=== PATIENT | female | born 1975 | race Caucasian/White ===

== ENCOUNTER 2020-04-20 16:25 | Outpatient (CLI) | payer BC, SELFPAY ==
--- NOTE | ~2020-04-20 | US_ITS ---
EXAMINATION: US pelvic complete w TV DATE: 04/20/2020 17:12 INDICATION: Vaginal spotting between periods Comparison:No prior studies for comparison. TECHNIQUE: Multiple transabdominal and endovaginal sonographic images of the pelvis performed. FINDINGS: The uterus measures 6.9 x 3.8 x 4.7 cm. There is a small hypoechoic mass of the myometrium measuring 8 mm, likely fibroid. The endometrial complex measures 8 mm. The right ovary measures 2.3 x 1 x 1.5 cm and the left ovary measures 1.9 x 1.2 x 1.2 cm. There is a 1.9 cm left ovarian cyst. There is no free fluid in the pelvis. There are no abnormal masses seen on either side. IMPRESSION: 1. Thickened endomtrial complex. The differential diagnosis includes endometrial hyperplasia, polyp a nd carcinoma. Biopsy is recommended. 2: Small 8 mm uterine fibroid. 3: 1.9 cm left ovarian cyst, likely benign. Reviewed, dictated and finalized at location A. IMPRESSION: 1. Thickened endomtrial complex. The differential diagnosis includes endometria l hyperplasia, polyp and carcinoma. Biopsy is recommended. 2: Small 8 mm uterine fibroid. 3: 1.9 cm left ovarian cyst, likely benign.
== END 2020-04-20 16:26 | disposition home or self-care (01) ==
PROVIDERS: PCP Family Medicine; Visit Provider Obstetrics & Gynecology
DX: N95.0 Postmenopausal bleeding (principal); R93.89 Abnormal findings on diagnostic imaging of other specified body structures; D25.9 Leiomyoma of uterus, unspecified; N83.202 Unspecified ovarian cyst, left side
CPT/HCPCS: 76830; 76856

== ENCOUNTER 2021-01-19 12:56 | Outpatient (CLI) | payer BC, SELFPAY ==
--- NOTE | ~2021-01-19 | US_ITS ---
EXAMINATION: US pelvic complete w TV DATE: 01/19/2021 13:48 INDICATION: Irregular bleeding between periods. Comparison:Ultrasound dated 04/20/2020 TECHNIQUE: Multiple transabdominal and endovaginal sonographic images of the pelvis performed. FINDINGS: The uterus measures 10.2 x 3.6 x 5.5 cm. Uterus is retroverted. There is a fibroid mid post erior myometrium measuring 1.9 x 1.7 x 1.4 cm. The endometrial complex measures 5.6 mm. The right ovary measures 2.9 x 1.1 x 0.9 cm and the left ovary measures 1.9 x 1.8 x 1.4 cm. There ar e small follicles in each ovary. Normal doppler signal in both ovaries. There are mildly prominent le ft adnexal veins which can be associated with pelvic congestion syndrome. There is no free fluid in the pelvis. There are no abnormal masses seen on either side. IMPRESSION: 1. Uterine fibroid measuring 1.9 x 1.7 x 1.4 cm 2: Mildly prominent left periuterine veins which can be associated with pelvic congestion syndrome. Reviewed, dictated and finalized at location A. SERVICE SUPERVISOR
== END 2021-01-19 12:57 | disposition home or self-care (01) ==
PROVIDERS: PCP Family Medicine; Visit Provider Obstetrics & Gynecology
DX: N93.9 Abnormal uterine and vaginal bleeding, unspecified (principal)
CPT/HCPCS: 76830; 76856

== ENCOUNTER 2021-12-24 08:19 | Outpatient (CLI) | payer BC, SELFPAY ==
--- NOTE | ~2021-12-24 | MM_ITS ---
EXAMINATION: MM screening emely BI w abena HISTORY: Screening mammogram TECHNIQUE: Craniocaudal and mediolateral oblique 3-D tomosynthesis images were obtained and synthetic 2-D images were generated. CAD analysis was submitted and interpreted. COMPARISON: 12/06/2019 BREAST PARENCHYMAL COMPOSITION: The breasts are heterogeneously dense, which may obscure small masses . FINDINGS: There is no evidence of suspicious mass, calcification, or architectural distortion to sugg est malignancy in either breast. There has been no suspicious interval change. IMPRESSION: 1. No mammographic evidence of malignancy. 2. Recommend routine screening mammography in one year. BI-RADS Category 1: Negative Reviewed, dictated and finalized at location A. STITCHER
== END 2021-12-24 08:20 | disposition home or self-care (01) ==
LOC: ANHIMG 08:24
PROVIDERS: PCP Family Medicine; Visit Provider Obstetrics & Gynecology
DX: Z12.31 Encounter for screening mammogram for malignant neoplasm of breast (principal)
CPT/HCPCS: 77063; 77067

== ENCOUNTER 2023-02-11 11:19 | Outpatient (CLI) | payer BC, SELFPAY ==
--- NOTE | ~2023-02-11 | MM_ITS ---
EXAMINATION: MM screening emely BI w abena HISTORY: Screening mammogram TECHNIQUE: Craniocaudal and mediolateral oblique 3-D tomosynthesis images were obtained and synthetic 2-D images were generated. CAD analysis was submitted and interpreted. COMPARISON: December 24, 2021, December 06, 2019 bilateral screening mammogram examinations BREAST PARENCHYMAL COMPOSITION: The breasts are heterogeneously dense, which may obscure small masses . FINDINGS: Left breast: New microcalcifications are suggested in the posterior outer left breast on CC projectio n, not confirmed on MLO view. Diagnostic left mammogram with magnification views is recommended. Right breast: There is no evidence of suspicious mass, calcification, or architectural distortion to suggest malignancy in the right breast. There has been no suspicious interval change. IMPRESSION: 1. Left breast microcalcifications suggested in posterior outer left breast on CC projection, not con firmed on MLO view 2. Diagnostic left mammogram with magnification views is recommended BI-RADS Category 0: Incomplete: Needs additional imaging evaluation. Reviewed, dictated and finalized at location A. IMPRESSION: 1. Left breast microcalcifications suggested in posterior outer left breast on CC projection, not confirmed on MLO view 2. Diagnostic left mammogram with magnification views is recommended BI-RADS Category 0: Incomplete: Needs additional imaging evaluation.
== END 2023-02-11 11:20 | disposition home or self-care (01) ==
LOC: ANHIMG 11:26
PROVIDERS: PCP Family Medicine; Visit Provider Obstetrics & Gynecology
DX: Z12.31 Encounter for screening mammogram for malignant neoplasm of breast (principal); R92.8 Other abnormal and inconclusive findings on diagnostic imaging of breast
CPT/HCPCS: 77063; 77067

== ENCOUNTER 2023-03-10 12:31 | Outpatient (CLI) | payer BC, SELFPAY ==
--- NOTE | ~2023-03-10 | MM_ITS ---
EXAMINATION: MM diagnostic emely LT w abena HISTORY: Left breast microcalcification suggested in posterior outer left breast on screening CC view of 02/11/2023, not confirmed on MLO view TECHNIQUE: Additional 3-D ML tomosynthesis images of the left breast were performed and synthetic 2-D images were generated. Magnification ML and CC views. CAD analysis was submitted and interpreted. COMPARISON: February 11, 2023 bilateral screening mammogram FINDINGS: No microcalcifications are evident on these magnification ML and CC views. The microcalcifi cations suggested on the screening CC view of 02/11/2023 were artifacts. IMPRESSION: 1. No mammographic evidence of malignancy 2. Routine annual mammographic screening is recommended. BI-RADS Category 1: Negative Reviewed, dictated and finalized at location A.
== END 2023-03-10 12:32 | disposition home or self-care (01) ==
LOC: ANHIMG 12:33
PROVIDERS: PCP Family Medicine; Visit Provider Obstetrics & Gynecology
DX: R92.8 Other abnormal and inconclusive findings on diagnostic imaging of breast (principal)
CPT/HCPCS: 77061; 77065; G0279

== ENCOUNTER 2024-10-29 08:29 | Outpatient (CLI) | payer BC, SELFPAY ==
--- NOTE | ~2024-10-29 | MM_ITS ---
EXAMINATION: MM screening emely BI w abena HISTORY: Screening TECHNIQUE: Craniocaudal and mediolateral oblique 3-D tomosynthesis images were obtained and synthetic 2-D images were generated. CAD analysis was submitted and interpreted. COMPARISON: Comparison to multiple prior studies sequentially, with oldest reviewed study dated 12/06. BREAST PARENCHYMAL COMPOSITION: Dense: The breasts are heterogeneously dense, which may obscure small masses FINDINGS: There is no evidence of suspicious mass, calcification, or architectural distortion to sugg est malignancy in either breast. There has been no suspicious interval change. IMPRESSION: 1. No mammographic evidence of malignancy. 2. Recommend routine screening mammography in one year. BI-RADS Category 1: Negative Reviewed, dictated and finalized at location B. OR SOFTWARE ENGINEER
== END 2024-10-29 08:30 | disposition home or self-care (01) ==
LOC: ANHIMG 08:30
PROVIDERS: PCP Family Medicine
DX: Z12.31 Encounter for screening mammogram for malignant neoplasm of breast (principal)
CPT/HCPCS: 77063; 77067